=== PATIENT | female | born 2000 | race Caucasian/White ===

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

== ENCOUNTER 2020-05-22 17:59 | Emergency (ER) | payer OTHER ==
[~2020-05-22] VITALS: Ht 154.9 cm; Wt 61.2 kg
[~2020-05-22 17:59] MED LIST changes: +Bactrim 400-801 EACH PO; +OMEP20ER PO; +Pyridium200 MG PO
[2020-05-22] MEDS ORDERED: ALBU90OI INH (19:23)
== END 2020-05-22 19:33 | disposition home or self-care (01) ==
LOC: ER 17:59
DX: R06.02 Shortness of breath (principal); R07.89 Other chest pain; Z88.8 Allergy status to other drugs, medicaments and biological substances
CPT/HCPCS: 71046; 96372; 99283-25; J1885

== ENCOUNTER → 2021-06-04 | Outpatient (CLI) | payer OTHER ==
[~2021-06-04] MED LIST changes: +ALBU90OI INH
== END | disposition home or self-care (01) ==
LOC: LAB 18:10 → LAB SHORT 18:10
DX: N39.0 Urinary tract infection, site not specified (principal)
CPT/HCPCS: 87086

== ENCOUNTER → 2021-06-07 | Outpatient (CLI) | payer OTHER ==
[2021-06-12 12:37] LABS: CHLAMYDIA TRACHOMATIS, NAA Negative (Negative)
== END | disposition home or self-care (01) ==
LOC: LAB SHORT 15:00
PROVIDERS: Advanced Practice Midwife
DX: Z36.89 Encounter for other specified antenatal screening (principal)
CPT/HCPCS: 87491; 87591; G0123

== ENCOUNTER → 2021-07-22 | Outpatient (CLI) | payer OTHER ==
[2021-07-22 17:30] LABS: Source, Urine Voided
[2021-07-22 19:11] LABS: Bilirubin, Urine Neg (Neg); Blood, Urine Neg (Neg); Color, Urine Yellow (P-Yellow); Glucose Qualitative, Urine Neg (Neg); Ketones, Urine Neg (Neg); Leukocyte Esterase, Urine Neg (Neg); Nitrite, Urine Neg (Neg); Protein, Urine Neg (Neg); Specific Gravity, Urine 1.015 (1.003-1.022); Urobilinogen, Urine NORM (Normal)
[2021-07-22 19:43] LABS: Amorphous Light (0-Heavy); Appearance, Urine Hazy (Clear); Bacteria Mod /hpf; Red Blood Cells, Urine 0-2 /hpf (0-2); Squamous Epithelial Cells Few /hpf (Few); White Blood Cells, Urine 0-2 /hpf (0-5)
== END | disposition home or self-care (01) ==
LOC: LAB 17:27 → LAB SHORT 17:27
PROVIDERS: Advanced Practice Midwife
DX: O23.41 Unspecified infection of urinary tract in pregnancy, first trimester (principal)
CPT/HCPCS: 81001; 87086

== ENCOUNTER → 2021-10-17 | Outpatient (CLI) | payer OTHER ==
[2021-10-18 07:12] LABS: BASOS 0 % (Not Estab.); EOS 0 % (Not Estab.); HEMATOCRIT 30.2 % (34.0-46.6); IMMATURE GRANS (ABS) 0.1 x10E3/uL (0.0-0.1); IMMATURE GRANULOCYTES 1 % (Not Estab.); LYMPHS 18 % (Not Estab.); LYMPHS (ABSOLUTE) 2.3 x10E3/uL (0.7-3.1); MCH 27.7 pg (26.6-33.0); MCHC 33.1 g/dL (31.5-35.7); MCV 84 fL (79-97); MONOCYTES 7 % (Not Estab.); MONOCYTES(ABSOLUTE) 0.9 x10E3/uL (0.1-0.9); NEUTROPHILS 74 % (Not Estab.); NEUTROPHILS (ABSOLUTE) 9.4 x10E3/uL (1.4-7.0); PLATELETS 259 x10E3/uL (150-450); RBC 3.61 x10E6/uL (3.77-5.28); RDW 12.7 % (11.7-15.4); WBC 12.8 x10E3/uL (3.4-10.8)
== END | disposition home or self-care (01) ==
LOC: LAB 14:10 → LAB SHORT 14:10
PROVIDERS: Advanced Practice Midwife
DX: Z34.82 Encounter for supervision of other normal pregnancy, second trimester (principal)
CPT/HCPCS: 82950; 85025

== ENCOUNTER → 2021-12-25 | Outpatient (CLI) | payer OTHER | END | disposition home or self-care (01) | LOC: LAB SHORT 11:04 | DX: Z34.03 Encounter for supervision of normal first pregnancy, third trimester (principal) | CPT/HCPCS: 87081; 87150 ==

== ENCOUNTER 2022-01-07 19:14 | Observation (INO) | payer OTHER | END 2022-01-08 03:35 | disposition home or self-care (01) | LOC: BC 19:14 → OBS 19:14 → BC 19:15 → OBS 23:00 → BC 23:01 | PROVIDERS: ADMIT Obstetrics & Gynecology | DX: O47.1 False labor at or after 37 completed weeks of gestation (principal); Z3A.38 38 weeks gestation of pregnancy | CPT/HCPCS: 59025; 81003; 96372; G0378; J2270; J2550 ==

== ENCOUNTER 2022-01-08 11:19 | Inpatient (IN) | payer OTHER ==
[~2022-01-08] VITALS: Ht 157.5 cm; Wt 78.6 kg
[2022-01-08 11:56] LABS: BASOPHILS ABSOLUTE AUTO 0.01 K/mm3 (0.00-0.23); BASOPHILS PERCENT AUTO 0 % (0-2); EOSINOPHILS ABSOLUTE AUTO 0.02 K/mm3 (0.00-0.68); EOSINOPHILS PERCENT AUTO 0 % (0-6); Hematocrit 32.3 % (33.0-51.0); Hemoglobin 10.2 g/dL (11.5-16.0); IMMATURE GRAN ABSOLUTE AUTO 0.09 K/mm3 (0.00-0.10); IMMATURE GRAN PERCENT AUTO 1 % (0-1); LYMPHOCYTES ABSOLUTE AUTO 1.96 K/mm3 (0.84-5.20); LYMPHOCYTES PERCENT AUTO 20 % (21-46); MONOCYTES ABSOLUTE AUTO 0.73 K/mm3 (0.16-1.47); MONOCYTES PERCENT AUTO 8 % (4-13); Mean Corpuscular HGB 26.4 pg (26.0-34.0); Mean Corpuscular HGB Conc 31.6 g/dL (31.5-36.5); Mean Corpuscular Volume 84 fL (80-100); Mean Platelet Volume 10.7 fL (9.1-12.4); NEUTROPHILS ABSOLUTE AUTO 6.89 K/mm3 (1.96-9.15); NEUTROPHILS PERCENT AUTO 71 % (41-73); Platelet Count 250 K/mm3 (150-400); RDW Standard Deviation 45.4 fL (35.1-46.3); Red Blood Cell Count 3.87 M/mm3 (3.80-5.20)
[2022-01-08 12:52] LABS: Influenza A, PCR NEGATIVE (NEGATIVE); Influenza B, PCR NEGATIVE (NEGATIVE); Resp Syncytial Virus, PCR NEGATIVE (NEGATIVE); SARS-Cov-2 (COVID-19) PCR, MMC NEGATIVE (NEGATIVE)
== END 2022-01-08 12:40 | disposition home or self-care (01) | DRG 833 ==
LOC: OBS 11:19 → BC 11:20 → OBS 11:26 → BC 11:28
PROVIDERS: ADMIT Advanced Practice Midwife
DX: O47.1 False labor at or after 37 completed weeks of gestation (principal); Z3A.38 38 weeks gestation of pregnancy; Z20.822 Contact with and (suspected) exposure to COVID-19
CPT/HCPCS: 0241U; 59025; 85025; 86850; 86900; 86901

== ENCOUNTER → 2022-01-08 | Outpatient (CLI) | payer OTHER ==
[2022-01-08 13:16] LABS: Appearance, Urine Cloudy (Clear); Bilirubin, Urine Neg (Neg); Blood, Urine 3+ (Neg); Color, Urine Yellow (P-Yellow); Glucose Qualitative, Urine Neg (Neg); Ketones, Urine Neg (Neg); Leukocyte Esterase, Urine 3+ (Neg); Nitrite, Urine Neg (Neg); Protein, Urine 1+ (Neg); Source, Urine Clean Catch; Urobilinogen, Urine NORM (Normal)
[2022-01-08 13:32] LABS: Amorphous Mod (0-Heavy); Bacteria Many /hpf; Red Blood Cells, Urine TNTC /hpf (0-2); Squamous Epithelial Cells Many /hpf (Few); White Blood Cells, Urine TNTC /hpf (0-5)
== END | disposition home or self-care (01) ==
LOC: LAB SHORT 10:52
PROVIDERS: Advanced Practice Midwife
DX: Z34.03 Encounter for supervision of normal first pregnancy, third trimester (principal)
CPT/HCPCS: 81001; 87086

== ENCOUNTER 2022-01-13 05:00 | Inpatient (IN) | payer OTHER ==
[~2022-01-13] VITALS: Ht 154.9 cm; Wt 78.0 kg
[2022-01-13 05:43] LABS: BASOPHILS ABSOLUTE AUTO 0.02 K/mm3 (0.00-0.23); BASOPHILS PERCENT AUTO 0 % (0-2); EOSINOPHILS ABSOLUTE AUTO 0.02 K/mm3 (0.00-0.68); EOSINOPHILS PERCENT AUTO 0 % (0-6); Hemoglobin 10.3 g/dL (11.5-16.0); IMMATURE GRAN ABSOLUTE AUTO 0.14 K/mm3 (0.00-0.10); IMMATURE GRAN PERCENT AUTO 1 % (0-1); LYMPHOCYTES ABSOLUTE AUTO 1.93 K/mm3 (0.84-5.20); LYMPHOCYTES PERCENT AUTO 18 % (21-46); MONOCYTES ABSOLUTE AUTO 0.68 K/mm3 (0.16-1.47); MONOCYTES PERCENT AUTO 6 % (4-13); Mean Corpuscular HGB 26.8 pg (26.0-34.0); Mean Corpuscular HGB Conc 32.2 g/dL (31.5-36.5); Mean Corpuscular Volume 83 fL (80-100); NEUTROPHILS PERCENT AUTO 74 % (41-73); Platelet Count 215 K/mm3 (150-400); RDW Coefficient Variation 15.3 % (11.7-14.2); RDW Standard Deviation 45.6 fL (35.1-46.3); Red Blood Cell Count 3.85 M/mm3 (3.80-5.20); White Blood Cell Count 10.79 K/mm3 (4.00-11.30)
[2022-01-14 06:22] LABS: Hematocrit 31.4 % (33.0-51.0); Mean Corpuscular HGB 26.8 pg (26.0-34.0); Mean Corpuscular HGB Conc 31.8 g/dL (31.5-36.5); Mean Corpuscular Volume 84 fL (80-100); Mean Platelet Volume 11.1 fL (9.1-12.4); Platelet Count 192 K/mm3 (150-400); RDW Coefficient Variation 15.4 % (11.7-14.2); RDW Standard Deviation 46.6 fL (35.1-46.3); Red Blood Cell Count 3.73 M/mm3 (3.80-5.20); White Blood Cell Count 18.17 K/mm3 (4.00-11.30)
== END 2022-01-14 17:15 | disposition home or self-care (01) | DRG 807 ==
LOC: OBS 05:00 → BC 05:02 → OBS 05:03 → BC 05:04
PROVIDERS: ADMIT Advanced Practice Midwife
PROC: 10E0XZZ Delivery of Products of Conception, External Approach (ICD-10-PCS; principal; 2022-01-13)
PROC: 10907ZC Drainage of Amniotic Fluid, Therapeutic from Products of Conception, Via Natural or Artificial Opening (ICD-10-PCS; 2022-01-13)
DX: O69.81X0 Labor and delivery complicated by cord around neck, without compression, not applicable or unspecified (principal); Z37.0 Single live birth; Z3A.39 39 weeks gestation of pregnancy; O70.0 First degree perineal laceration during delivery; Z79.899 Other long term (current) drug therapy
CPT/HCPCS: 36415; 85025; 85027; 86850; 86900; 86901; A9270; J1885; J2001; J2590; J3010; J7120

== ENCOUNTER 2023-01-06 20:17 | Emergency (ER) | payer OTHER ==
[~2023-01-06] VITALS: Ht 154.9 cm; Wt 68.0 kg
[2023-01-06 20:33] VITALS: BP 118/81
== END 2023-01-06 21:17 | disposition home or self-care (01) ==
LOC: ER 20:17
DX: K08.89 Other specified disorders of teeth and supporting structures (principal); R68.84 Jaw pain; Z88.8 Allergy status to other drugs, medicaments and biological substances
CPT/HCPCS: 99282

== ENCOUNTER → 2023-08-04 | Outpatient (CLI) | payer OTHER ==
[2023-08-04 08:28] LABS: BASOPHILS ABSOLUTE AUTO 0.02 K/mm3 (0.00-0.23); BASOPHILS PERCENT AUTO 0 % (0-2); EOSINOPHILS ABSOLUTE AUTO 0.01 K/mm3 (0.00-0.68); EOSINOPHILS PERCENT AUTO 0 % (0-6); Hematocrit 36.4 % (33.0-51.0); IMMATURE GRAN ABSOLUTE AUTO 0.01 K/mm3 (0.00-0.10); IMMATURE GRAN PERCENT AUTO 0 % (0-1); LYMPHOCYTES ABSOLUTE AUTO 2.07 K/mm3 (0.84-5.20); LYMPHOCYTES PERCENT AUTO 27 % (21-46); MONOCYTES PERCENT AUTO 5 % (4-13); Mean Corpuscular HGB 27.5 pg (26.0-34.0); Mean Corpuscular Volume 83 fL (80-100); Mean Platelet Volume 10.1 fL (9.1-12.4); NEUTROPHILS ABSOLUTE AUTO 5.12 K/mm3 (1.96-9.15); NEUTROPHILS PERCENT AUTO 67 % (41-73); Platelet Count 222 K/mm3 (150-400); RDW Coefficient Variation 14.7 % (11.7-14.2); Red Blood Cell Count 4.37 M/mm3 (3.80-5.20); White Blood Cell Count 7.63 K/mm3 (4.00-11.30)
== END ==
LOC: LAB SHORT 08:23 → LAB 08:23
PROVIDERS: Physician Assistant
DX: R10.9 Unspecified abdominal pain (principal)
CPT/HCPCS: 85025

== ENCOUNTER → 2024-07-22 | Outpatient (CLI) | payer OTHER ==
[2024-07-22 17:21] LABS: Source, Urine Voided
[2024-07-22 18:35] LABS: Appearance, Urine Clear (Clear); Bilirubin, Urine Neg (Neg); Blood, Urine 2+ (Neg); Color, Urine Yellow (P-Yellow); Glucose Qualitative, Urine Neg (Neg); Ketones, Urine Neg (Neg); Leukocyte Esterase, Urine 1+ (Neg); Nitrite, Urine Neg (Neg); Protein, Urine 1+ (Neg); Specific Gravity, Urine 1.025 (1.003-1.022); Urobilinogen, Urine NORM (Normal)
[2024-07-22 18:50] LABS: Bacteria Few /hpf; Mucus Light (0-Heavy); Squamous Epithelial Cells Few /hpf (Few)
[2024-07-22 19:58] LABS: Bacterial Vaginosis PCR Negative (NEGATIVE); Candida Group, PCR NOT DETECTED (NOT DETECT); Candida glabrata-krusei, PCR NOT DETECTED (NOT DETECT)
== END | disposition home or self-care (01) ==
LOC: LAB SHORT 17:19 → LAB 17:19
PROVIDERS: Obstetrics & Gynecology
DX: O09.90 Supervision of high risk pregnancy, unspecified, unspecified trimester (principal); O23.599 Infection of other part of genital tract in pregnancy, unspecified trimester; N89.8 Other specified noninflammatory disorders of vagina
CPT/HCPCS: 81001; 87086; 87481; 87661; 87801

== ENCOUNTER → 2024-11-29 | Outpatient (CLI) | payer BC ==
[~2024-11-29] MED LIST changes: +IRON18 M1 PO; +PRENATAL TABLE1 EAC2 PO
== END ==
LOC: LAB SHORT 09:51 → LAB 09:51
DX: O09.90 Supervision of high risk pregnancy, unspecified, unspecified trimester (principal)
CPT/HCPCS: 87081; 87150

== ENCOUNTER 2024-11-30 02:38 | Inpatient (IN) | payer BC ==
[~2024-11-30] VITALS: Ht 160 cm; Wt 86.0 kg
[~2024-11-30 02:38] MED LIST changes: -IRON18 M1 PO; -PRENATAL TABLE1 EAC2 PO
[2024-11-30 02:48] VITALS: BP 118/77
[2024-11-30] MEDS ORDERED: IRON18 M1 PO (04:46)
[2024-11-30] MEDS ORDERED: PRENATAL TABLE1 EAC2 PO (04:47)
[2024-11-30 05:11] VITALS: BP 109/67
[2024-11-30] MEDS ORDERED: Oxytocin 10 Unit / ML Vial IM PRN (05:25)
[2024-11-30] MEDS ORDERED: OXYTOCIN/RINGER'S LACTATE 500 ML IV PRN (05:25)
[2024-11-30] MEDS ORDERED: FentaNYL 2mcg/ml-Bup 0.1% Epd 250 ML EPI PRN (05:25)
[2024-11-30] MEDS ORDERED: Carboprost Tromethamine 250 MCG/ML 1ML Amp IM PRN (05:25)
[2024-11-30] MEDS ORDERED: ePHEDrine Sulfate 50 MG/ML 1ML Injection XX PRN (05:25)
[2024-11-30] MEDS ORDERED: Tranexamic Acid 100 ML IV SCH (05:25)
[2024-11-30] MEDS ORDERED: Misoprostol 200 MCG Tab BC PRN (05:25)
[2024-11-30] MEDS ORDERED: Misoprostol 200 MCG Tab PR PRN (05:25)
[2024-11-30] MEDS ORDERED: Lactated Ringer's 1,000 ML IV PRN ×3 (05:25)
[2024-11-30] MEDS ORDERED: Methylergonovine Maleate 0.2MG / ML 1ML Amp IM PRN (05:25)
[2024-11-30] MEDS ORDERED: Acetaminophen 500 MG Tab PO PRN (05:30)
[2024-11-30] MEDS ORDERED: Calcium Carbonate 500 MG Tab Chew PO PRN (05:30)
[2024-11-30] MEDS ORDERED: Ondansetron HCl 2 MG / ML 2ML Vial IV PRN (05:30)
[2024-11-30 05:33] LABS: BASOPHILS ABSOLUTE AUTO 0.03 K/mm3 (0.00-0.23); BASOPHILS PERCENT AUTO 0 % (0-2); EOSINOPHILS ABSOLUTE AUTO 0.03 K/mm3 (0.00-0.68); EOSINOPHILS PERCENT AUTO 0 % (0-6); Hematocrit 29.1 % (33.0-51.0); Hemoglobin 9.4 g/dL (11.5-16.0); IMMATURE GRAN ABSOLUTE AUTO 0.23 K/mm3 (0.00-0.10); IMMATURE GRAN PERCENT AUTO 2 % (0-1); LYMPHOCYTES ABSOLUTE AUTO 2.27 K/mm3 (0.84-5.20); LYMPHOCYTES PERCENT AUTO 19 % (21-46); MONOCYTES ABSOLUTE AUTO 1.01 K/mm3 (0.16-1.47); MONOCYTES PERCENT AUTO 8 % (4-13); Mean Corpuscular HGB Conc 32.3 g/dL (31.5-36.5); Mean Corpuscular Volume 81 fL (80-100); Mean Platelet Volume 10.1 fL (9.1-12.4); NEUTROPHILS ABSOLUTE AUTO 8.65 K/mm3 (1.96-9.15); NEUTROPHILS PERCENT AUTO 71 % (41-73); NRBC ABSOLUTE 0.04 K/mm3 (0.00-0.02); NRBC Auto 0.3 /100 WBC (0.0-0.2); Platelet Count 304 K/mm3 (150-400); RDW Coefficient Variation 14.5 % (11.7-14.2); RDW Standard Deviation 42.4 fL (35.1-46.3); Red Blood Cell Count 3.61 M/mm3 (3.80-5.20); White Blood Cell Count 12.22 K/mm3 (4.00-11.30)
[2024-11-30] MEDS ORDERED: Penicillin G Potassium 5,000,000 UNITS in NS 250 ML IV ONE (06:01)
[2024-11-30 07:16] VITALS: BP 110/66
[2024-11-30] MEDS ORDERED: Penicillin G Potassium 2,500,000 UNITS in Dextrose 5% 100 ML IV SCH (10:00)
== END 2024-11-30 08:47 | disposition home or self-care (01) | DRG 833 ==
LOC: OBS 02:38 → BC 02:42 → OBS 04:19 → BC 04:22
PROVIDERS: ADMIT Family Medicine
DX: O47.03 False labor before 37 completed weeks of gestation, third trimester (principal); Z3A.36 36 weeks gestation of pregnancy
CPT/HCPCS: 36415; 59025; 81003; 85025; 86850; 86900; 86901; 99214; A9270; J2540; J7050; J7120

== ENCOUNTER 2024-12-18 04:10 | Inpatient (IN) | payer BC ==
[2024-12-18] VITALS (17 sets, daily range): BP systolic 96–141; BP diastolic 51–85
[~2024-12-18] VITALS: Ht 160 cm; Wt 86.8 kg
[~2024-12-18 04:10] MED LIST changes: +IRON18 M1 PO; +PRENATAL TABLE1 EAC2 PO
[2024-12-18] MEDS ORDERED: Oxytocin 10 Unit / ML Vial IM PRN (04:45)
[2024-12-18] MEDS ORDERED: OXYTOCIN/RINGER'S LACTATE 500 ML IV PRN (04:45)
[2024-12-18] MEDS ORDERED: Misoprostol 200 MCG Tab BC PRN (04:45)
[2024-12-18] MEDS ORDERED: Misoprostol 200 MCG Tab PR PRN (04:45)
[2024-12-18] MEDS ORDERED: Methylergonovine Maleate 0.2MG / ML 1ML Amp IM PRN (04:45)
[2024-12-18] MEDS ORDERED: Tranexamic Acid 100 ML IV SCH (04:45)
[2024-12-18] MEDS ORDERED: Carboprost Tromethamine 250 MCG/ML 1ML Amp IM PRN (04:45)
[2024-12-18] MEDS ORDERED: Oxytocin 10 Unit / ML Vial IM ONE ×2 (05:25→13:23)
[2024-12-18] MEDS ORDERED: Ketorolac Tromethamine 30mg Vial IM PRN (05:25)
[2024-12-18] MEDS ORDERED: Lanolin Cream TOP PRN (05:30)
[2024-12-18] MEDS ORDERED: FLU VACC TS2024-25(6MOS UP)/PF 45 MCG/0.5 ML SYRINGE IM ONE (05:30)
[2024-12-18] MEDS ORDERED: Witch Hazel/Glycerin PADS TOP PRN (05:30)
[2024-12-18] MEDS ORDERED: Benzocaine Topical Anesthetic Spray 60GM TOP PRN (05:30)
[2024-12-18] MEDS ORDERED: Lactated Ringer's 1,000 ML IV SCH (05:30)
[2024-12-18] MEDS ORDERED: Ibuprofen 400 MG Tab PO PRN (05:30)
[2024-12-18] MEDS ORDERED: Acetaminophen 500 MG Tab PO PRN (05:35)
[2024-12-18] MEDS ORDERED: Prenatal Vit/FE Fumarate/FA 1 Tab PO SCH (09:00)
[2024-12-19 01:00] VITALS: BP 110/59
[2024-12-19 01:05] VITALS: BP 110/59
[2024-12-19 05:28] VITALS: BP 130/59
[2024-12-19 08:14] VITALS: BP 129/76
--- NOTE | 2024-12-19 09:56 | NUR ---
PT DISCHARGED TO HOME WITH IN CARSEAT, WALKED TO CAR AND VISULIZED BABY CARSEAT CLICK INTO BASE.
== END 2024-12-19 09:50 | disposition home or self-care (01) | DRG 806 ==
LOC: OBS 04:10 → BC 04:11 → OBS 04:31 → BC 04:32
PROVIDERS: ADMIT Family Medicine
PROC: 10E0XZZ Delivery of Products of Conception, External Approach (ICD-10-PCS; principal; 2024-12-18)
PROC: 0HQ9XZZ Repair Perineum Skin, External Approach (ICD-10-PCS; 2024-12-18)
DX: O99.02 Anemia complicating childbirth (principal); O47.1 False labor at or after 37 completed weeks of gestation; O70.0 First degree perineal laceration during delivery; O99.344 Other mental disorders complicating childbirth; D50.9 Iron deficiency anemia, unspecified; F41.8 Other specified anxiety disorders; Z37.0 Single live birth; Z88.8 Allergy status to other drugs, medicaments and biological substances; Z3A.39 39 weeks gestation of pregnancy
CPT/HCPCS: 59025; 81003; 99214; A9270; J2590